=== PATIENT | female | born 1960 | race Two or more races ===

== ENCOUNTER 2024-05-23 11:34 | Emergency (ER) | payer OTHER ==
[~2024-05-23] VITALS: Ht 157.5 cm; Wt 56.2 kg
[2024-05-23] MEDS ORDERED: TOPROL XL50 M1 (11:44)
[2024-05-23] MEDS ORDERED: LIPITOR20 MG (11:44)
[2024-05-23] MEDS ORDERED: ZESTRIL5 MG (11:44)
[2024-05-23] MEDS ORDERED: TAMSULOSIN HCL 0.4 MG CAP PO ONE (12:00)
[2024-05-23 12:42] LABS: HEMATOCRIT 39.1 % (36.0-45.00); HEMOGLOBIN 13.3 g/dL (12.0-15.00); MEAN CELL VOLUME 88.5 fL (80.00-100.00); MEAN CORPUSCULAR HEMOGLOBIN 30.1 pg (27.00-32.0); PLATELET COUNT 201 K/uL (150-450); RED BLOOD COUNT 4.41 M/uL (4.00-6.00); RED CELL DISTRIBUTION WIDTH 13.2 % (11.5-14.5)
[2024-05-23 13:03] LABS: PH,URINE 5.5 (5.0-8.0); URINE APPEARANCE Clear; URINE BILIRRUBIN Small (NEGATIVE); URINE BLOOD Small; URINE COLOR Dark Yellow; URINE GLUCOSE Negative (NEGATIVE); URINE LEUKOCYTE Small; URINE NITRATE Positive; URINE PROTEIN Trace (NEGATIVE)
[2024-05-23 13:08] LABS: URINE BACTERIA 152.4 uL (0.0-1933); URINE EPITHELIAL CELLS 7.5 uL (0.0-38.8); URINE RBC 73.5 uL (0.0-20.8); URINE WBC 11.7 uL (0.0-23.2)
[2024-05-23 13:14] LABS: CALCIUM 9.4 mg/dL (8.5-10.1); CREATININE SERUM 0.79 mg/dL (0.55-1.02); GFR 73.27; POTASSIUM 4.52 mEq/L (3.5-5.1)
[2024-05-23 13:20] LABS: URINE KETONE 40 (NEGATIVE)
[2024-05-23] MEDS ORDERED: METRONIDAZOLE/SODIUM CHLORIDE 500 MG/100 ML PIGGYBACK IV ONE (15:00)
[2024-05-23] MEDS ORDERED: CIPROFLOXACIN IN 5 % DEXTROSE 400 MG/200 ML PIGGYBAG IV ONE (15:00)
== END 2024-05-23 17:55 | disposition home or self-care (01) ==
LOC: ER 11:36
PROVIDERS: Emergency Medicine
DX: K57.92 Diverticulitis of intestine, part unspecified, without perforation or abscess without bleeding (principal); R10.9 Unspecified abdominal pain; Z88.6 Allergy status to analgesic agent; E78.00 Pure hypercholesterolemia, unspecified; I10 Essential (primary) hypertension; N20.0 Calculus of kidney